=== PATIENT | male | born 1980 | race African-American/Black ===

== ENCOUNTER 2019-06-28 22:27 | Emergency (ER) | payer BC ==
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
[2019-06-28] MEDS ORDERED: Silver Sulfadiazine 1% Crm 50 GM Tube TOP ONE (23:06)
== END 2019-06-28 23:41 | disposition home or self-care (01) ==
LOC: MW.ED 22:27
DX: T23.002A Burn of unspecified degree of left hand, unspecified site, initial encounter (principal); T23.001A Burn of unspecified degree of right hand, unspecified site, initial encounter; T31.0 Burns involving less than 10% of body surface; X08.8XXA Exposure to other specified smoke, fire and flames, initial encounter; Y92.89 Other specified places as the place of occurrence of the external cause; Y99.0 Civilian activity done for income or pay
CPT/HCPCS: 99283; A9270